=== PATIENT | male | born 1990 | race American Indian/Alaskan Native ===

== ENCOUNTER 2019-01-28 14:10 | Emergency (ER) | payer OTHER ==
[2019-01-28 14:17] VITALS: BP 113/70
--- NOTE | 2019-01-28 15:48 | XRay Report ---
PROCEDURE: XR FINGER(S) 2+V LT TECHNIQUE: 3 view examination of the left index finger HISTORY: Trauma, pain , distal second digit and left hand pain, swelling, and discoloration after inj ury in car door COMPARISONS: None FINDINGS: A nondisplaced slightly comminuted fracture is noted in the distal tuft of the distal phalanx. No fra cture angulation. No dislocation. Other bones appear intact. IMPRESSION: Distal phalangeal tuft fracture This document is electronically signed by Osito Liao MD., January 28 2019 03:46:55 PM ET
--- NOTE | 2019-01-28 15:53 | Emergency Department Report ---
ED Extremity Problem HPI - General Chief complaint: Wound/Laceration Stated complaint: RT FINGER CUT/LFT FINGER SWOLLEN Time Seen by Provider: 01/28/19 15:44 Source: patient Mode of arrival: Ambulatory Limitations: No Limitations - History of Present Illness Initial comments: 28-year-old -[place] male comes to the emergency room concern for left index finger being slammed in a car door on . Patient reports is been taking ibuprofen and it has helped some until patient moved his finger. Patient also comes in with a superficial cut to his right index finger with a knife. Patient reports is not too concerned about that as he is with his left finger. MD Complaint: extremity pain, joint swelling -: days(s) (3 left finger smashed) - Related Data Previous Rx's Medication Instructions Recorded Last Taken Type Ibuprofen [Motrin 600 MG tab] 600 mg PO Q8H PRN #30 tablet 01/28/19 Unknown Rx traMADol [Ultram 50 MG tab] 50 mg PO Q6HR PRN #12 tablet 01/28/19 Unknown Rx Allergies Allergy/AdvReac Type Severity Reaction Status Date / Time No Known Allergies Allergy Unverified 01/28/19 14:16 ED Review of Systems ROS: Stated complaint: RT FINGER CUT/LFT FINGER SWOLLEN Other details as noted in HPI Comment: All other systems reviewed and negative ED Past Medical Hx - Past Medical History Previous Medical History?: No - Surgical History Past Surgical History?: No - Social History Smoking Status: Current Every Day Smoker Substance Use Type: Marijuana - Medications Home Medications: Home Medications Medication Instructions Recorded Confirmed Last Taken Type Ibuprofen [Motrin 600 MG tab] 600 mg PO Q8H PRN #30 tablet 01/28/19 Unknown Rx traMADol [Ultram 50 MG tab] 50 mg PO Q6HR PRN #12 tablet 01/28/19 Unknown Rx ED Physical Exam - General Limitations: No Limitations General appearance: alert, in no apparent distress - Head Head exam: Present: atraumatic, normocephalic - Eye Eye exam: Present: normal appearance - ENT ENT exam: Present: mucous membranes moist - Expanded Upper Extremity Exam Right Hand Wrist exam: Present: tenderness (index finger), swelling (index finger) - Neurological Exam Neurological exam: Present: alert, oriented X3 - Psychiatric Psychiatric exam: Present: normal affect, normal mood - Expanded Skin Exam Expanded Type of lesion: Present: laceration Distribution of rash: RUE (right index finger proximal very superficial laceration only needs a Band-Aid.) ED Course Vital Signs 01/28/19 14:15 Temperature 98.3 F Pulse Rate 72 Respiratory 18 Rate Blood Pressure 113/70 O2 Sat by Pulse 99 Oximetry ED Medical Decision Making - Radiology Data Radiology results: report reviewed Left index finger distal comminuted tuft fracture. - Medical Decision Making Patient has been evaluated by this provider in fast track. X-ray of left index finger shows a comminuted turgor fracture left distal. We'll place patient in a finger splint and referral to orthopedist. Patient was treated with tramadol Critical care attestation.: If time is entered above; I have spent that time in minutes in the direct care of this critically ill patient, excluding procedure time. ED Disposition Clinical Impression: Finger fracture, left Qualifiers: Encounter type: initial encounter Finger: index finger Fracture type: closed Phalanx: distal Fracture alignment: displaced Qualified Code(s): S62.631A - Displaced fracture of distal phalanx of left index finger, initial encounter for closed fracture Disposition: DC-01 TO HOME OR SELFCARE Is pt being admited?: No Does the pt Need Aspirin: No Condition: Stable Instructions: Finger Fracture (ED) Additional Instructions: Please take pain medication as needed. Wear splint as placed. Follow-up with orthopedic provider I have listed information below for your convenience. Prescriptions: Ibuprofen [Motrin 600 MG tab] 600 mg PO Q8H PRN #30 tablet PRN Reason: Pain traMADol [Ultram 50 MG tab] 50 mg PO Q6HR PRN #12 tablet PRN Reason: Pain Referrals: CHAPARRO GOODEN MD [Staff Physician] - 3-5 Days Forms: Work/School Release Form(ED)
== END 2019-01-28 16:57 | disposition home or self-care (01) ==
LOC: ED 14:10
DX: S62.631A Displaced fracture of distal phalanx of left index finger, initial encounter for closed fracture (principal); W23.0XXA Caught, crushed, jammed, or pinched between moving objects, initial encounter; Y93.89 Activity, other specified; Y92.89 Other specified places as the place of occurrence of the external cause; Y99.8 Other external cause status